=== PATIENT | female | born 1965 | race African-American/Black ===

== ENCOUNTER 2016-08-28 18:12 | Emergency (ER) | payer OTHER ==
[2016-08-28 18:20] VITALS: BP 135/77; PULSE 83; TEMP 97.9; BMI 29.1
[2016-08-28] MEDS ORDERED: KETOROLAC TROMETHAMINE 60 MG/2 ML VIAL IM ONE (18:51)
[2016-08-28] MEDS ORDERED: KETOROLAC TROMETHAMINE 60 MG/2 ML VIAL ONE (18:54)
--- NOTE | 2016-08-28 20:07 | PDOC ---
History of Present Illness - General Chief Complaint: Pain, Acute Stated Complaint: LEG PAIN Time Seen by Provider: 08/28/16 18:38 History Source: Patient Exam Limitations: No Limitations - History of Present Illness Initial Comments: 08/28/16 20:02 Patient is a 50-year-old female history of asthma, high cholesterol, thyroid cancer, high blood pressure patient presents with left anterior and lateral leg pain. Patient reports pain started several weeks ago when she was using abduct machine at the gym she was seen by her primary care doctor who gave her Naprosyn. Patient states that Naprosyn didn't work told that she had damage ligament. Now with burning stabbing pain to left upper anterior leg, and lateral leg. Patient states she also thinks her left foot is swollen. Past Medical History: Denies. Allergies: Meperidine Medications: See medication list Family History: Non-contributory Social History: Denies smoking, alcohol use, or IVDU Review of Systems GENERAL/CONSTITUTIONAL: No fever or chills. No weakness. No weight change. HEAD, EYES, EARS, NOSE AND THROAT: No change in vision. No ear pain or discharge. No sore throat. CARDIOVASCULAR: No chest pain or shortness of breath. RESPIRATORY: No cough, wheezing, or hemoptysis. GASTROINTESTINAL: No nausea, vomiting, diarrhea or constipation. No rectal bleeding. GENITOURINARY: No dysuria, frequency, or change in urination. MUSCULOSKELETAL: No joint or muscle swelling or pain. No neck or back pain. SKIN AND BREASTS: No rash or easy bruising. NEUROLOGIC: No headache, vertigo, loss of consciousness, or loss of sensation. PSYCHIATRIC: No depression or anxiety. ENDOCRINE: No increased thirst. No abnormal weight change. HEMATOLOGIC/LYMPHATIC: No anemia, easy bleeding, or history of blood clots. ALLERGIC/IMMUNOLOGIC: No hives or skin allergy. No latex allergy. Physical Exam: GENERAL: The patient is awake, alert, and fully oriented, in no acute distress. EYES: Pupils equal, round and reactive to light, extraocular movements intact, sclera anicteric, conjunctiva clear. ENT: Ears normal, nares patent, oropharynx clear without exudates. Moist mucous membranes. No uvula deviation NECK: Normal range of motion, supple without lymphadenopathy, JVD, or masses. LUNGS: Breath sounds equal, clear to auscultation bilaterally. No wheezes, and no crackles. HEART: Regular rate and rhythm, normal S1 and S2 without murmur, rub or gallop. ABDOMEN: Soft, nontender, normoactive bowel sounds. No guarding, no rebound. No masses. No bruising or abrasions RECTAL : Guaiac negative, normal rectal tone. MUSCULOSKELETAL: Normal range of motion, no edema. No spinal point tenderness. Left lateral hip around SI joint. No clubbing or cyanosis. No cords, erythema, or tenderness. No CVA Tenderness with fist palpation. No pain to calf, no erythema or edema, negative Homans sign. NEUROLOGICAL: Cranial nerves II through XII grossly intact. Normal speech, normal gait. PSYCH: Normal mood, normal affect. SKIN: Warm, Dry, normal turgor, no rashes or lesions noted. No edema noted on examination, no warmth to calf, negative Homans sign, no edema to left lower leg. Past History - Past Medical History Allergies/Adverse Reactions: Allergies Allergy/AdvReac Type Severity Reaction Status Date / Time meperidine HCl [From Demerol] Allergy Verified 08/28/16 18:20 Home Medications: Ambulatory Orders Calcitriol 0.5 mcg PO DAILY 11/07/11 Levothyroxine [Synthroid -] 112 mcg PO DAILY 11/07/11 Simvastatin [Zocor -] 20 mg PO HS 11/07/11 Amlodipine Besylate [Norvasc -] 2.5 mg PO DAILY 10/04/12 Cholecalciferol (Vitamin D3) [Vitamin D -] 1 tab PO DAILY 10/04/12 Pantoprazole Sodium [Protonix -] 40 mg PO ONCE #20 tablet.ec 01/01/14 Methylprednisolone [Medrol Dose Mp] 4 mg PO ASDIR #21 tablet 08/28/16 Tramadol HCl 50 mg PO TID #15 tablet MDD 3 08/28/16 Anemia: No Asthma: Yes Cancer: Yes (THYROID) Cardiac Disorders: No CVA: No COPD: No CHF: No Dementia: No Diabetes: No GI Disorders: No Disorders: No HTN: No Hypercholesterolemia: Yes Liver Disease: No Seizures: No Thyroid Disease: No - Surgical History Abdominal Surgery: No Appendectomy: No Cardiac Surgery: No Cholecystectomy: No Lung Surgery: No Neurologic Surgery: Yes (C4 C6 SX) Orthopedic Surgery: No - Psycho/Social/Smoking Cessation Hx Anxiety: No Suicidal Ideation: No Smoking Status: No Smoking History: Never smoked Have you smoked in the past 12 months: No Number of Cigarettes Smoked Daily: 0 Hx Alcohol Use: Yes (OCCASIONALLY) Drug/Substance Use Hx: No Substance Use Type: Alcohol Hx Substance Use Treatment: No *Physical Exam - Vital Signs Last Vital Signs Temp Pulse Resp BP Pulse Ox 97.9 F 83 18 135/77 99 08/28/16 18:16 08/28/16 18:16 08/28/16 18:16 08/28/16 18:16 08/28/16 18:16 ED Treatment Course - RADIOLOGY Radiology Studies Ordered: Category Date Time Status HIP & PELVIS-LEFT [RAD] Stat Radiology 08/28/16 18:48 Completed - Medications Given in the ED: ED Medications Discontinued Medications Generic Name Dose Route Start Last Admin Trade Name Freq PRN Reason Stop Dose Admin Ketorolac Tromethamine 60 mg 08/28/16 18:51 08/28/16 19:05 Toradol Injection - IM 08/28/16 18:52 60 mg ONCE ONE Administration Medical Decision Making - Medical Decision Making 08/28/16 20:07 A/P: Patient with anterior left lower leg pain and lateral leg pain highly suspicious for sciatica however cannot rule out acute injury from abductor machine at the gym. Will perform hip and pelvis left x-rays and Toradol 60 mg IM will reevaluate 08/28/16 20:28 X-ray demonstrated degenerative changes, there is no acute fracture or dislocation. Patient reports that she feels better after Toradol injection. The patient home on Medrol Dosepak and tramadol strict follow-up with orthopedics I discussed the physical exam findings, ancillary test results and final diagnoses with the patient. I answered all of the patient's questions. The patient was satisfied with the care received and felt comfortable with the discharge plan and treatment plan. The patient will call to arrange follow-up and will return to the Emergency Department with any new, persistent or worsening symptoms. *DC/Admit/Observation/Transfer Diagnosis at time of Disposition: Sciatica Qualifiers: Laterality: left Qualified Code(s): M54.32 - Sciatica, left side Leg pain Qualifiers: Laterality: left Qualified Code(s): M79.605 - Pain in left leg - Discharge Dispostion Disposition: HOME Condition at time of disposition: Good Admit: No - Prescriptions Prescriptions: Methylprednisolone [Medrol Dose Mp] 4 mg PO ASDIR #21 tablet Tramadol HCl 50 mg PO TID #15 tablet MDD 3 - Referrals Referrals: Kamar Forde MD [Primary Care Provider] - Cruzito Barrera MD [Staff Physician] - - Patient Instructions Printed Discharge Instructions: Sciatica (Alternative Therapy) Additional Instructions: 1. Please return to the emergency department with any numbness, tingling, weakness, numbness or tingling to groin or legs, or loss of bowel or bladder function. 2. Use pain medication as ordered. 3. Please is to followup in the office of Dr. Barrera for evaluation within a week if no improvement. 4. Ice to lower back 5. Refrain from lifting anything above 10 pounds, until pain resolved. - Post Discharge Activity Work/School Note: Back to Work
== END 2016-08-28 20:58 | disposition home or self-care (01) ==
LOC: JERFT 18:12
PROC: 3E0233Z Introduction of Anti-inflammatory into Muscle, Percutaneous Approach (ICD-10-PCS; principal; 2016-08-28)
DX: M54.32 Sciatica, left side (principal); I10 Essential (primary) hypertension; E78.00 Pure hypercholesterolemia, unspecified
CPT/HCPCS: 73523-TC; 96372; 99281-25

== ENCOUNTER 2020-04-30 12:36 | Emergency (ER) | payer OTHER ==
[2020-04-30 13:17] VITALS: BP 112/64; PULSE 86; TEMP 98.5; BMI 31.8
[2020-04-30] MEDS ORDERED: KETOROLAC TROMETHAMINE 30 MG/1 ML VIAL IVPUSH ONE (13:34)
[2020-04-30] MEDS ORDERED: KETOROLAC TROMETHAMINE 30 MG/1 ML VIAL ONE (13:51)
[2020-04-30 14:52] LABS: BASO % 0.5 % (0-2.0); EOS % 0.6 % (0-4.5); HEMATOCRIT 38.8 % (32.4-45.2); HEMOGLOBIN 12.5 GM/dL (10.7-15.3); LYMPH % 31.6 % (8-40); MCHC 32.3 g/dl (32.0-36.0); MEAN CELL VOLUME 83.7 fl (80-96); MEAN PLT VOLUME 10.3 fl (7.5-11.1); MONO % 6.7 % (3.8-10.2); NEUT % 60.6 % (42.8-82.8); PLATELET COUNT 224 K/MM3 (134-434); RBC 4.63 M/mm3 (3.60-5.2); RDW 16.4 % (11.6-15.6); WHITE BLOOD COUNT 6.5 K/mm3 (4.0-10.0)
[2020-04-30 14:56] LABS: EPI CELLS 23 /uL (0-25.1); HYALINE CASTS 6 /uL (0-3.1); PH,URINE 5.5 (5.0-8.0); URINE APPEARANCE CLOUDY; URINE BACTERIA 2171 /uL (0-1359); URINE BILIRUBIN NEGATIVE (NEGATIVE); URINE COLOR YELLOW; URINE GLUCOSE (UA) NEGATIVE (NEGATIVE); URINE KETONE NEGATIVE (NEGATIVE); URINE LEUK ESTERASE 2+ (NEGATIVE); URINE NITRITE NEGATIVE (NEGATIVE); URINE PROTEIN NEGATIVE (NEGATIVE); URINE UROBILINOGEN 0.2 mg/dL (0.2-1.0); URINE WBC 164 /uL (0-25.8)
[2020-04-30 15:12] LABS: POTASSIUM 3.8 mmol/L (3.5-5.1)
[2020-04-30 15:14] LABS: ALBUMIN 3.8 g/dl (3.4-5.0); BLOOD UREA NITROGEN 11.3 mg/dL (7-18); CALCIUM 8.8 mg/dL (8.5-10.1)
[2020-04-30 15:17] LABS: CREATININE 0.9 mg/dL (0.55-1.3)
[2020-04-30 15:19] LABS: BILIRUBIN,TOTAL 0.4 mg/dL (0.2-1); TOT PROT 7.7 g/dl (6.4-8.2)
== END 2020-04-30 15:42 | disposition home or self-care (01) ==
LOC: JER 12:36
PROC: 3E0233Z Introduction of Anti-inflammatory into Muscle, Percutaneous Approach (ICD-10-PCS; principal; 2020-04-30)
DX: N30.00 Acute cystitis without hematuria (principal)
CPT/HCPCS: 36415; 74176-TC; 80053; 81003; 85025; 87086; 99285-25